=== PATIENT | female | born 1965 | race Caucasian/White ===

== ENCOUNTER → 2017-01-10 | Day surgery (SDC) | payer OTHER ==
[~2017-01-10] VITALS: Ht 154.9 cm; Wt 70.3 kg
[2017-01-10 09:50] VITALS: BP 115/84
[2017-01-10 15:45] VITALS: BP 112/74
== END | disposition home or self-care (01) ==
LOC: DS 09:20 → OR 11:00
PROVIDERS: Surgery
PROC: 0FT44ZZ Resection of Gallbladder, Percutaneous Endoscopic Approach (ICD-10-PCS; principal; 2017-01-10 11:00)
DX: K80.10 Calculus of gallbladder with chronic cholecystitis without obstruction (principal)
CPT/HCPCS: J0690; J1170; J2405; J2704; J2710; J3010; J3490; J7030; J7120